=== PATIENT | male | born 1950 | race Caucasian/White ===

== ENCOUNTER 2019-09-24 11:07 | Emergency (ER) | payer MEDICARE, BC, SELFPAY ==
[2019-09-24] VITALS (8 sets, daily range): BP systolic 91–152; BP diastolic 56–102; PULSE 49–88; RESP 14–17; TEMP 36.4; O2SAT 97–98
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
[2019-09-24] MEDS: TETANUS,DIPHTHERIA,AC PERTUSSIS ADULT (0.5 ML) BOOSTRIX IM (11:25)
[2019-09-24 11:50] LABS: Basophils Percent Auto 0.6 % (0.2-1.2); Eosinophils Absolute Auto 0.2 K/mm3 (0-0.3); Eosinophils Percent Auto 3.4 % (0-4.4); Hematocrit 44.3 % (42.0-52.0); Hemoglobin 14.5 g/dL (14.0-18.0); Immature Granulocyte Absolute 0.03 K/mm3 (0.00-0.031); Immature Granulocyte Percent A 0.4 % (0-0.5); Lymphocytes Absolute Auto 1.43 K/mm3 (0.9-3.2); Lymphocytes Percent Auto 21.2 % (18.3-44.2); Mean Corpuscular HGB Conc 32.7 g/dl (32-36); Mean Corpuscular Hemoglobin 31.3 pg (26-34); Mean Corpuscular Volume 95.7 fl (80-100); Mean Platelet Volume 10.3 fl (7.4-10.4); Monocytes Absolute Auto 0.5 K/mm3 (0.1-0.6); Monocytes Percent Auto 7.4 % (2.6-8.5); Neutrophils Absolute Auto 4.5 K/mm3 (1.3-6.7); Platelet Count Result 218 k/mm3 (150-375); Red Blood Count 4.63 M/mm3 (4.6-6.20); Red Cell Distribution Width 13.5 % (11.5-14.5); White Blood Count 6.8 K/mm3 (4.5-10.0)
[2019-09-24 12:00] LABS: Prothrombin Time 12.6 Seconds (11.1-14.7)
[2019-09-24 12:01] LABS: Partial Thromboplastin Time 23.6 SECONDS (22.3-36.8)
[2019-09-24 12:04] LABS: Alanine Aminotransferase 27 U/L (4-50); Albumin Level 3.6 g/dL (3.5-5.1); Alkaline Phosphatase 54 U/L (38-126); Anion Gap 10.8 mmol/L (7-16); Aspartate Amino Transferase 39 U/L (17-59); Bilirubin,Total 0.7 mg/dL (0.2-1.3); Blood Urea Nitrogen 26 mg/dL (9-20); Calcium 8.2 mg/dL (8.4-10.2); Carbon Dioxide 26 mmol/L (22-30); Chloride 104 mmol/L (98-107); Estimated CRCL calculation 50 ml/min; Estimated Glomerular Filt Rate 50; Glucose 133 mg/dL (75-110); Potassium 4.8 mmol/L (3.4-5.0); Sodium 136 mmol/L (137-145)
--- NOTE | 2019-09-24 17:01 | PC.NURSE ---
spoke to melany, awaiting dc, will call back
[2019-09-24] MEDS: MORPHINE SULFATE 4 MG/ML INJ 6 MG IV PUSH (17:38)
--- NOTE | 2019-09-24 19:19 | PC.NURSE ---
provider updated on pt frustration of los explained to pt that I would place a call to melany for update
--- NOTE | 2019-09-24 19:21 | PC.NURSE ---
received a [address] [id number]
--- NOTE | 2019-09-24 20:08 | PC.NURSE ---
Addendum entered by Georgia Morrison 09/24/19 22:00: 2119: CALLED FOR ETA STATUS...ENROUTE FROM [facility], 20 MINUTES 2158: CALLED FOR ETA STATUS...15-20 MINUTES. ENROUTE. Original Note: CALLED [facility] TO TRANSPORT TO [id number] - ETA 45-60 MINUTES.
== END 2019-09-24 22:44 | disposition short-term general hospital (02) ==
PROVIDERS: Emergency Medicine Emergency Medical Services; Emergency Provider General Practice; PCP Internal Medicine
DX: S82.65XA Nondisplaced fracture of lateral malleolus of left fibula, initial encounter for closed fracture (principal); S22.42XA Multiple fractures of ribs, left side, initial encounter for closed fracture; S36.039A Unspecified laceration of spleen, initial encounter; S01.512A Laceration without foreign body of oral cavity, initial encounter; V28.4XXA Motorcycle driver injured in noncollision transport accident in traffic accident, initial encounter; E66.9 Obesity, unspecified; Z68.33 Body mass index [BMI] 33.0-33.9, adult; Z23 Encounter for immunization
CPT/HCPCS: 12011; 29515; 36415; 70450; 71260; 72125; 73610; 74177; 80053; 85025; 85610; 85730; 90471; 90715; 96374; 96375; 99285; A9270; J0131; J2270; Q9967